=== PATIENT | male | born 1980 | race Caucasian/White ===

== ENCOUNTER 2024-03-20 10:43 | Outpatient (OUT) | payer BC, SELFPAY ==
[2024-03-20 11:36] LABS: Bilirubin Urine NEGATIVE (NEGATIVE); Blood Urine NEGATIVE (NEGATIVE); Clarity Urine CLEAR (CLEAR); Color Urine LT. YELLOW (YELLOW); Glucose Urine UA NEGATIVE (NEGATIVE); Ketones Urine NEGATIVE (NEGATIVE); Leukocyte Esterase Urine TRACE (NEGATIVE); Nitrite Urine POSITIVE (NEGATIVE); Protein Urine NEGATIVE (NEG/TRACE); Urobilinogen Urine 0.2 EU/dL (0.2-1.0)
[2024-03-20 11:42] LABS: Basophils Absolute Auto 0.1 10^3/uL (0.0-0.1); Basophils Percent Auto 0.6 % (0.2-2.0); Eosinophils Absolute Auto 0.2 10^3/uL (0.0-0.7); Eosinophils Percent Auto 2.8 % (0.9-7.0); Hemoglobin 14.7 g/dL (14.0-18.0); Immature Granulocytes Pct Auto 1.2 % (0.0-0.5); Lymphocytes Absolute Auto 2.3 10^3/uL (1.2-3.8); Lymphocytes Percent Auto 27.8 % (20.5-60.0); Mean Corpuscular HGB Conc 33.4 g/dL (29.9-35.2); Mean Corpuscular Hemoglobin 30.2 pg (25.9-34.0); Mean Corpuscular Volume 90.3 fL (80.0-94.0); Mean Platelet Volume 10.7 fL (9.5-13.5); Monocytes Absolute Auto 0.8 10^3/uL (0.3-0.8); Monocytes Percent Auto 9.4 % (1.7-12.0); Neutrophils Absolute Auto 4.7 10^3/uL (1.4-6.5); Neutrophils Percent Auto 58.2 % (43.0-75.0); Platelet Count 231 10^3/uL (150-450); Red Blood Count 4.87 10^6/uL (4.70-6.10); Red Cell Distribution Width 12.7 % (11.0-15.0); White Blood Count 8.1 10^3/uL (4.0-11.0)
[2024-03-20 12:13] LABS: Alanine Aminotransferase 40 U/L (16-63); Albumin Globulin Ratio 1.2; Albumin Level 3.9 g/dL (3.4-5.0); Alkaline Phosphatase 82 U/L (46-116); Anion Gap 13.8; Aspartate Amino Transferase 21 U/L (15-37); Bilirubin Total 0.7 mg/dL (0.2-1.0); Calcium 9.2 mg/dL (8.5-10.1); Carbon Dioxide 27.1 mmol/L (21.0-32.0); Chloride 102 mmol/L (98-107); Chol HDL Ratio 2.5; Cholesterol 197 mg/dL (<=200); Estimated GFR (African America >60 (>=60); Estimated GFR (Non-African Ame >60 (>=60); Globulin 3.3 g/dL; Glucose 97 mg/dL (74-106); HDL Cholesterol 79 mg/dL (40-60); Potassium 3.9 mmol/L (3.5-5.1); Sodium 139 mmol/L (136-145); Total Protein 7.2 g/dL (6.4-8.2); Triglycerides 61 mg/dL (<=150); VLDL CHOLESTEROL 12.2 mg/dL
[2024-03-20 12:31] LABS: Prostate Specific Antigen Scrn 0.35 ng/mL (<=4.00)
== END 2024-03-20 10:44 | disposition home or self-care (01) ==
LOC: LAB 10:47
PROVIDERS: PCP Internal Medicine; Visit Provider Internal Medicine
DX: Z00.00 Encounter for general adult medical examination without abnormal findings (principal)
CPT/HCPCS: 36415; 80053; 80061; 81003; 85025; G0103

== ENCOUNTER 2025-03-28 09:47 | Outpatient (OUT) | payer BC, SELFPAY ==
[2025-03-28 10:28] LABS: Alanine Aminotransferase 49 U/L (16-63); Albumin Globulin Ratio 1.3; Albumin Level 3.9 g/dL (3.4-5.0); Alkaline Phosphatase 75 U/L (46-116); Anion Gap 11.1; Aspartate Amino Transferase 25 U/L (15-37); BUN Creatinine Ratio 10.5; Bilirubin Total 0.5 mg/dL (0.2-1.0); Calcium 8.8 mg/dL (8.5-10.1); Carbon Dioxide 26.1 mmol/L (21.0-32.0); Chloride 103 mmol/L (98-107); Chol HDL Ratio 2.5; Cholesterol 154 mg/dL (<=200); Estimated GFR (African America >60 (>=60 mL/min/1.73m^2); Estimated GFR (Non-African Ame >60 (>=60 mL/min/1.73m^2); Globulin 3.1 g/dL; Glucose 97 mg/dL (74-106); HDL Cholesterol 62 mg/dL (40-60); Potassium 4.2 mmol/L (3.5-5.1); Sodium 136 mmol/L (136-145); Triglycerides 62 mg/dL (<=150); VLDL CHOLESTEROL 12.4 mg/dL
[2025-03-28 10:44] LABS: Basophils Absolute Auto 0.1 10^3/uL (0.0-0.1); Basophils Percent Auto 0.8 % (0.2-2.0); Eosinophils Absolute Auto 0.2 10^3/uL (0.0-0.7); Eosinophils Percent Auto 2.7 % (0.9-7.0); Hematocrit 41.1 % (42.0-54.0); Hemoglobin 14.2 g/dL (14.0-18.0); Immature Granulocytes Abs Auto 0.07 10^3/uL (0.00-0.03); Immature Granulocytes Pct Auto 0.9 % (0.0-0.5); Lymphocytes Absolute Auto 2.2 10^3/uL (1.2-3.8); Lymphocytes Percent Auto 29.4 % (20.5-60.0); Mean Corpuscular HGB Conc 34.5 g/dL (29.9-35.2); Mean Corpuscular Hemoglobin 30.7 pg (25.9-34.0); Mean Platelet Volume 10.3 fL (9.5-13.5); Monocytes Absolute Auto 0.6 10^3/uL (0.3-0.8); Monocytes Percent Auto 8.2 % (1.7-12.0); Neutrophils Absolute Auto 4.3 10^3/uL (1.4-6.5); Platelet Count 278 10^3/uL (150-450); Red Blood Count 4.62 10^6/uL (4.70-6.10); Red Cell Distribution Width 12.2 % (11.0-15.0); White Blood Count 7.5 10^3/uL (4.0-11.0)
[2025-03-28 11:28] LABS: Prostate Specific Antigen Scrn 0.19 ng/mL (<=4.00)
== END 2025-03-28 09:48 | disposition home or self-care (01) ==
LOC: LAB 09:50
PROVIDERS: PCP Internal Medicine; Visit Provider Internal Medicine
DX: Z00.00 Encounter for general adult medical examination without abnormal findings (principal); Z12.5 Encounter for screening for malignant neoplasm of prostate
CPT/HCPCS: 36415; 80053; 80061; 85025; G0103

== ENCOUNTER 2025-10-08 14:14 | Outpatient (OUT) | payer BC, SELFPAY ==
--- OUTSIDE RECORDS SUMMARY | 2025-10-07 07:09 | XMS_ITS | Continuity of Care Document ---
Author Organization [facility] Address [address] [place] [address] Phone Care Team Providers Care Coordinate Measuring Machine Operator Name Role Phone Albert Lopez DO Primary Care Provider [phone] Albert Lopez DO Attending Provider Care Teams Patient Care Team Team Status: Active Member Role/Relationship Status Dates Albert Lopez DO Primary Care Provider Active Patient Care Team Team Status: Inactive Member Role/Relationship Status Dates Albert Lopez DO Primary Care Provider Active Start: October 07, 2025 End: October 07enjastanford Lopez DOAttending ProviderActiveStart: October 07, 2025 End: October 07, 2025 Chief Complaint and Reason for Visit Chief Complaint Admit Date follow up October 07, 2025 11:09am Reason for Visit Admit Date Benign prostatic hyperplasia with lower urinary tract symptoms October 07, 2025 11:09am GERD (gastroesophageal reflux disease) N ovember 2024 11:09am Hypertension October 07, 2025 11:09am Obesity October 07, 2025 11:09am Peripheral neuropathy October 07 11:09am Screening for colon cancer September 11:09am Allergies, Adverse Reactions, Alerts Allergen Type Severity Reaction Last Updated Verified Status lisinopril Allergy Unknown cough October 07, 2025 11:22am Y es Active Social History Smoking Status Status Start Date End Date Date of Observa tion Never smoked tobacco (finding) February 27, 2024 11:56am Observation Status Observation Response Date of Response Legal Sex Male (finding) Sex Assigned At BirthMaleFebruary 1980 Problems Active Problems Problem Diagnosis/Recorded Date Onset Date Status C omments Hydroureteronephrosis September 24, 2024 12:12pm Unknown Active Screening PSA (prostate specific antigen)September 22, 2024 8:20amUnknownActive PSA: 0.35 - 03/2024, 0.19 - 5/2024Peripheral neuropathyNov2024 12:02pmUnknownActiveBenign prostatic hyperplasia with lower urinary tract symptomsMay 2023 9:15amUnknownActiveGERD (gastroesophageal reflux disease) March 20, 2024 9:17amUnknownActiveHypertensionApril 2023 6:23amUnknown ActiveObesityMay 2023 9:17amUnknownActive Medications Medication Status Dose Units Route Directions Qty Days Refills S tart Date Stop Date End Date Reason(s) Instructions Adherence Amlodipine 5 mg tablet Discontinued 0 .ROUTE.BFNLKWC830Wdhrs 2023 3:40pmMay 2023 8:42amTAKE 1 TABLET BY MOUTH EVERY DAY FOR 30 DAYSCephalexin 500 mg ksmobjpViwwjyrfsrly069XONDGkkpg times cllrg26799Xqtzd 2023 11:00pmNovember 2023 11:58amLosartan 25 mg tabletDiscontinued0.ROUTE.VZVFCFC972Oab 2023 1:13pmNovember 2023 1:00pmTAKE 1 TABLET BY MOUTH EVERY DAY FOR 30 DAYSAmlodipine 5 mg tablet Discontinued0.ROUTE.LYYLVTX4557Uypbuyr 2023 9:36amAugust 2024 7:33am TAKE 1 TABLET BY MOUTH EVERY DAY FOR 30 DAYSLosartan 25 mg tabletDiscontinued0 .ROUTE.IGSCNRX160Xxtvikvy 11th, 2024 1:00pmAugust 2024 7:33amTAKE 1 TABLET BY MOUTH EVERY DAY FOR 30 DAYSOmeprazole 40 mg capsule,delayed release(DR/EC) Discontinued0.ROUTE.ABLQDCZ027Bjcubklr 28th, 2024 8:37amMarch 2024 8:49pm TAKE 1 CAPSULE BY MOUTH ON AN EMPTY STOMACH, 30 MINS PRIOR TO BREAKFAST Omeprazole 40 mg capsule,delayed release(DR/EC)Active0.ROUTE.AYZDNBY698Vegxb 2024 8:49pmTAKE 1 CAPSULE BY MOUTH ON AN EMPTY STOMACH, 30 MINUTES PRIOR TO BREAKFASTComplies with drug therapyAmlodipine 5 mg tabletActive0.ROUTE.ZYEJDDJ51 3Ast 2024 7:33amTAKE 1 TABLET BY MOUTH EVERY DAY FOR 30 DAYSComplies with drug therapyLosartan 25 mg tabletActive0.ROUTE.OBNFCYJ160Iavqyy 14th, 2025 7:33amTAKE 1 TABLET BY MOUTH EVERY DAYComplies with drug therapyAmlodipine 5 mg metmvrRwtxismcunwq0KGEEWrwoxXqsfg 2023 11:00pmApril 2023 3:40pm Losartan 25 mg ewqvebZsmxtvvwvuwf67HMFBNmrxbZwwhj 2023 11:00pmMay 2023 1:13pmAmlodipine 5 mg qwtthxTvfrnewacipq0DDSOKdwmcOla 2023 8:42amOctober 2023 9:36amOmeprazole 40 mg capsule,delayed release(DR/EC)Dcqlxtlbqukv57OO TOEqsyh92133Qzqsibsi 5th, 2024 12:00amNovember 2023 8:37amtake on empty stomach, 30 minutes prior to bkfstAzithromycin 250 mg nxvkstSlewhgnzdfts630OFBR .BOWBKJH846Qem 2024 11:00pmNovember 2024 11:22am2 tabs on first day followed by 1 tab on days 2-5 Vital Signs Vital Reading Result Reference Range Collection Date/Time Height 69.25 [in_i] October 07, 2025 11:63fjLgdnve104.96 kgOctober 07, 2025 11:26amHeart Rate 78 /kdz98-487DnryngldOctober 07, 2025 11:26amRespiratory rate12 /jpj99-42YlvakaisOctober 07, 2025 11:26amBP Kquctwpx668 mm[Hg]100-140October 07, 2025 11:26amBP Hrkxrycgt64 mm[Hg]60-100October 07, 2025 11:26amBMI (Body Mass Index)33.3 kg/j9OmrpqkwaOctober 07, 2025 11:26am Advance Directives Advance Directive Response Recorded Date/ Time Advance Directives No December 11, 2023 10:02am Insurance Providers Guarantor Ronan Strickland Address [address] [place] [id number] Info.Home Phone: Payer Group Member ID Coverage Type Subscriber Relationship to Subscriber Effective Date Expiration Date Bharath PRADO Id: [id number] Stout , D Id: [id number] [address] Home Phone: Self Encounters Encounter Location(s) Arrival/Admit Date Discharge/Departure Date Discharge/Departure Disposition Provider(s) Departed Physician/ Provider [facility] October 07, 2025 11:09am October 07, 2025 12:08pm Discharged to home care or self care (routine discharge) Albert Lopez , Recent Diagnosis Onset Date Admit Date Benign prostatic hyperplasia with lower urinary tract symptoms Unknown October 07, 2025 11:09am GERD (gastroesophageal reflux disease) Unknown October 07, 2025 11:09am Hypertension Unknown October 07 11:09am Obesity Unknown October 07 11:09am Peripheral neuropathy Unknown September 202024 11:09am Screening for colon cancer Unknown 2024 11:09am Assessments Diagnosis Onset Date Resolution Status Admit Date Benign prostatic hyperplasia with lower urinary tract symptoms acuteOctober 07, 2025 11:09amGERD (gastroesophageal reflux disease)acute October 07, 2025 11:09amHypertensionacuteOctober 07, 2025 11:09amObesity acuteOctober 07, 2025 11:09amPeripheral neuropathyacuteOctober 07, 2025 11:09amScreening for colon cancernoneactiveOctober 07, 2025 11:09am Plan of Treatment [facility] 12:07pmI have instructed this patient to consume a healthy, low-fat, low-salt diet. I have also encouraged them to continue exercise with weight loss to achieve/maintain a BMI < 30. I have instructed this patient on the correct procedure for obtaining home BP measurements:? - rest for 5 minutes w/o talking. - positioned w/ feet on floor and arms supported. - average best 2/3 readings w/ goal < 135/85. - update office w/ home readings in 2 weeks. Continue Losartan and Amlodipine w/o changes I have instructed this patient to avoid lying flat after eating.?? I have also recommended to avoid eating 2 hours prior to bedtime.?? They were also informed that smaller, frequent meals may be better tolerated. I have discussed additional treatment options for persistent symptoms, which includes: weight loss, H2 blockers and PPI. I have also instructed them to notify the office with any pain or difficulty swallowing. Continue Omeprazole without interruption I have instructed this patient on a low-fat, high-fiber diet.?? I have also instructed them to reduce calories, portions sizes, sweet drinks and snacks.?? I have also recommended they exercise for 30 minutes, 3-5 times weekly. They are aware of the comorbid conditions associated with excessive weight: Diabetes, HTN, Hyperlipidemia, CAD and arthritis. c/o urgency Check UA and PSA yearly Referral to for evaluation and treatment of hydroureteronephrosis This patient is an asymptomatic, low risk patient due for screening. They deny any change in appetite, weight or bowel habits. They deny abdominal pain, heartburn, dysphagia, melena or hematochezia. Cologuard ordered Discussed possible reversible causes: B12, Fe, TSH and BS His examination is significant for decreased vibratory sensation of the toes. He has normal reflexes and motor strength Check labs May require referral for EMG/NCS Future Tests Future scheduled test information is unavailable Pending Tests Pending diagnostic test information is unavailable Future Visits Future appointment information is unavailable Future Procedures Procedure Name Ordered Date Scheduled Date A1C with Estimated Average Glu October 07 12:01pm Vitamin J81Opdszifk 2024 12:01pmFerritinNovvalleywise health [facility] 2024 12:01pmThyroid Stimulating [facility]ormoneSaint [facility] 20[facility] 12:01pm Future Medications Future medication information is unavailable Patient Instructions Patient instructions are unavailable
--- OUTSIDE RECORDS SUMMARY | 2025-10-08 14:20 | XMS_ITS | Clinical Summary ---
Author Organization [employer] [facility] tem Address [id number] [place] [address] Care Team Providers Care Licensing Engineer Name Role Phone Albert Lopez DO Primary Care Provider [phone] Allergies No known active allergies Medications MedicationSigDispense QuantityRefillsLast FilledStart DateEnd DateStatus losartan (COZAAR) 25 mg tablet Take 1 tablet (25 mg total) by mouth in the morning.Active amLODIPine (NORVASC) 5 mg tablet Take 1 tablet (5 mg total) by mouth in the morning.3Active Social History Tobacco UseTypesPacks/DayYears UsedDateSmoking Tobacco: NeverSmokeless Tobacco: Never Tobacco Cessation:Counseling Given: Not Answered Alcohol UseStandard Drinks/VxhgVmvstnxdBda70 (1 standard drink = 0.6 oz pure alcohol)ChildcareAnswerDate NrqfijwtQocikfywtYzellbg08/12/2019EmploymentAnswer Date VlizrztkLudwlivwbrZinwhtm16/12/2019Hunger ScreeningAnswerDate Recorded Within the past 12 months we worried whether our food would run out before we got money to buy more.Never True03/15/2024Within the past 12 months the food we bought just didn't last and we didn't have money to get more.Never True 03/15/2024Sex and Gender InformationValueDate RecordedSex Assigned at BirthNot on fileLegal WbgXjno6006/25/2015 11:31 AM EDTGender IdentityNot on fileSexual OrientationNot on file Last Filed Vital Signs Vital SignReadingTime TakenCommentsBlood Ihqsoqpu816/9052603/15/2024 11:52 AM EDT Rkxeg549003/15/2024 11:52 AM PWKEzimradfzyd54.1 ??C (98.7 ??F)03/15/2024 11:52 AM EDTRespiratory Yqcp807103/15/2024 11:52 AM EDTOxygen Rrzoebtevq407%03/15/2024 11:52 AM EDTInhaled Oxygen Concentration--Qggtyc79.3 kg (219 lb)01/03/2024 9:57 AM OCBKttzhw987.3 cm (5' 9 )01/03/2024 9:57 AM ESTBody Mass Index32.34001/03/2024 9:57 AM EST Plan of Treatment Health MaintenanceDue DateLast DoneCommentsDepression Gzqlfhrgp93/01/1991 DTaP,Tdap and Td Vaccines (1 - Tdap)1997Adult BMI Adeflvyss31/14/2025 01/03/2024Tobacco Vbiwtgryk45Influenza Wojrvfg4707/21/2025 Medical Devices ImplantedTypeAreaManufacturerDevice IdentifierShelf Expiration DateModel / Serial / LotAnchor Sut 2-0 Crv Fiberstitch Fbr Wr Plstr Rpl [id number] - Sna - [id number] Implanted:Qty: 1 on 01/03/20[facility]AnchorRight: SgwbMszfqyw79/31/2027AR-4570 / NA / [id number] Sut 2-0 Crv Fiberstitch Fbr Wr Plstr Rpl [id number] - [id number] Implanted:Qty: 1 on 01/03/2024 by [facility]ius Forrest [facility]: HruyQowaeby61/31/2027AR-457 / / [id number] Insurance Care Teams Team MemberRelationshipSpecialtyStart DateEnd Date Albert Lopez DO PCP - GeneralInternal Medicine03/15/24
--- OUTSIDE RECORDS SUMMARY | 2025-10-08 14:20 | XMS_ITS | Clinical Summary ---
Author Organization [facility] Address [address] [facility] [place] [address] Care Team Providers Care Paster Hat Lining Name Role Phone Albert Lopez DO Primary Care Provider [phone] Allergies Active AllergyReactionsCriticalityNoted XwwyVqkanyovVgaicnsvvoGduny17/27/2024 Medications MedicationSigDispense QuantityRefillsLast FilledStart DateEnd DateStatus amLODIPine (Norvasc) 5 MG tablet TAKE 1 TABLET BY MOUTH EVERY DAY FOR 30 DAYS10/04/2023ctive losartan (Cozaar) 25 MG tablet Active Active Problems ProblemNoted DateDiagnosed DateInternal derangement of right knee11/30/2023 Family History Medical HistoryRelationNameCommentsHeart diseaseFatherCancerMotherMary Griffith Heart diseaseMotherMary StoutRelationNameStatusCommentsFatherMotherMary Griffith Social History Tobacco UseTypesPacks/DayYears UsedDateSmoking Tobacco: NeverSmokeless Tobacco: Never Tobacco Cessation:Counseling Given: Not Answered Alcohol UseStandard Drinks/FbazXrydbgxnNez76 (1 standard drink = 0.6 oz pure alcohol)Sex and Gender InformationValueDate RecordedSex Assigned at BirthMale 11/28/2023 8:42 AM ESTLegal TewXknn0902/01/2023 11:38 PM EDTGender IdentityMale 11/28/2023 8:42 AM ESTSexual OrientationNot on file Last Filed Vital Signs Vital SignReadingTime TakenCommentsBlood Pressure--Pulse--Temperature-- Respiratory Rate--Oxygen Saturation--Inhaled Oxygen Concentration--Jcvjwz80.7 kg (211 lb)05/09/2024 1:42 PM EPNUwduil850.3 cm (5' 9 )05/09/2024 1:42 PM EDTBody Mass Index31.16005/09/2024 1:42 PM EDT Plan of Treatment Not on file Insurance Care Teams Team MemberRelationshipSpecialtyStart DateEnd Date Albert Lopez DO PCP - GeneralInternal Medicine12/05/23
--- OUTSIDE RECORDS SUMMARY | 2025-10-08 14:21 | XMS_ITS | CCD ---
Author Organization [facility] Care Team Providers Care Regional Clinical Director Name Role Phone DR ALBERT LOPEZ Primary Care Unavailable ANALILIA, DR MARTHA Shukla Attending Unavailable ANALILIA, DR MARTHA Shukla Consulting Unavailable ANALILIA, DR MARTHA Shukla Admitting Unavailable ANDREA, ELIZABETH Consulting Unavailable Albert Lopez Unavailable Albert Lopez MD Primary Care Provider MIKA MYLES Attending Unavailable ALBERT LOPEZ Primary Care Unavailable MIKA MYLES Attending Unavailable MIKA MYLES Referring Unavailable ALBERT LOPEZ Primary Care Unavailable DHAVAL FORREST Referring Unavailable LON, DHAVAL Richardson Attending Unavailable LON, DHAVAL Richardson Referring Unavailable LON, DHAVAL Richardson Referring Unavailable LON, DHAVAL Richardson Admitting Unavailable LON, DHAVAL Richardson Attending Unavailable LON, DHAVAL Richardson Referring Unavailable TONYTRAVIS YO Attending Unavailable LON, DHAVAL Richardson Attending Unavailable APLING, BRENDEN Herrera Attending Unavailable APLING, BRENDEN Herrera Attending Unavailable APLING, BRENDEN B Attending Unavailable APLING, BRENDEN B Attending Unavailable APLING, BRENDEN B Attending Unavailable APLING, BRENDEN B Referring Unavailable APLING, BRENDEN B Referring Unavailable LON, DHAVAL Richardson Attending Unavailable LON, DHAVAL Richardson Attending Unavailable Unavailable Primary Care Provider Unavailcaleb e Allergies Allergy ClassificationReported Allergen(s)Allergy TypeDate of OnsetReaction(s) Facility (9 sources)LisinoprilDrug AllergycoughFielding [employer] Other (2 sources)LisinoprilAllergy to cugdfmuny67-88-4334[facility] Medications Current Medications MedicationDrug Class(es)DatesSig (Normalized)Sig (Original)acetaminophen 325 mg / HYDROcodone bitartrate 5 mg oral tablet (1 source)Opioid AgonistStart: 01-02-2024 End: 20-70-5575hccb 1 tablet by mouth every six hours for painHYDROcodone- acetaminophen ([place]) 5-325 MG tablet Indications: Internal derangement of right knee Take 1 tablet by mouth every 6 (six) hours if needed for severe pain for up to 3 days 12 tablet 0 01/02/2024 01/05/2024 ActiveamLODIPine 5 mg oral tablet (20 sources)Dihydropyridine Calcium Channel BlockerStart: 16-99-3167yvxe 1 tablet by mouth once dailyAmlodipine 5 mg tablet Active 0 .ROUTE .COMPLEX August 28, 2024 10:36am TAKE 1 TABLET BY MOUTHEVERY DAY FOR 30 DAYSStart: 02-27-2024 End: 24-09-6053ctzt 1 tablet by mouth once dailyAmlodipine 5 mg tablet Discontinued 0 .ROUTE .COMPLEX February 27, 2024 4:40pm March 20, 2024 9:42am TAKE 1 TABLET BY MOUTH EVERY DAY FOR 30 DAYSStart: 09-07-2023 End: 54-37-9050blay 1 tablet by mouth once dailyAmlodipine 5 mg tablet Discontinued 5 MG PO Daily March 20, 2024 9:42am August 28, 2024 10:36am amLODIPine Besylate Activeazithromycin 250 mg oral tablet (1 source)Macrolide AntimicrobialStart: 79-24-7697Ggeirtsczlpc 250 mg tablet Active 250 MG PO .COMPLEX 6 March 21, 2025 12:00am 2 tabs on first day followed by 1 tab on days 2-5losartan potassium 25 mg oral tablet (16 sources)Angiotensin 2 Receptor BlockerStart: 03-26-2024 End: 45-75-9560jjpd 1 tablet by mouth once dailyLosartan 25 mg tablet Active 0 .ROUTE .COMPLEX September 30, 2024 2:00pm TAKE 1 TABLET BY MOUTHEVERY DAY FOR 30 DAYSStart: 10-18-2023 End: 54-17-2638ydtj 1 tablet by mouth once dailyLosartan 25 mg tablet Discontinued 25 MG PO Daily February 27, 2024 12:00am March 26, 2024 2:13pm meloxicam 7.5 mg oral tablet (8 sources)Nonsteroidal Anti-inflammatory DrugStart: 36-00-1053bkjx 1 tablet by mouth every twenty-four hoursMeloxicam 7.5 MG 1 tablet Orally Once a day for 30 days Jan, Activeomeprazole 40 mg delayed release oral capsule (4 sources)Proton Pump InhibitorStart: 10-17-2024 End: 03-11-2497kyzi 1 capsule by mouth at breakfastOmeprazole 40 mg capsule,delayed release(DR/EC) Active 0 .ROUTE .COMPLEX January 22, 2025 9:49pm TAKE 1 CAPSULE BY MOUTH ON AN EMPTY STOMACH, 30 MINUTES PRIOR TO BREAKFASTStart: 09-24-2024 End: 44-22-6002Bfttvtckyt 40 mg capsule,delayed release(DR/EC) Discontinued 40 MG PO Daily September 24, 2024 1:00am October 17, 2024 9:37am take on empty stomach, 30 minutes prior to bkfsttiZANidine 2 mg oral tablet (5 sources)Central alpha-2 Adrenergic AgonistStart: 97-61-6911gehs 1 tablet by mouth once at bedtime as neededtiZANidine HCl 2 MG 1 tablet as needed Orally q HS for 10 days Aug, Active Completed/Discontinued Medications MedicationDrug Class(es)DatesSig (Normalized)Sig (Original)amoxicillin 875 mg oral tablet (9 sources)Penicillin-class AntibacterialStart: 85-07-6816nvcg 1 tablet by mouth every twelve hoursAmoxicillin 875 MG 1 tablet Orally every 12 hrs for 7 days Apr, Not-Taking/PRNcephalexin 500 mg oral capsule (3 sources)Cephalosporin AntibacterialStart: 03-20-2024 End: 23-19-6666xeog 1 capsule by mouth three times dailyCephalexin 500 mg capsule Discontinued 500 MG PO Three times daily 18 09March 20, 2024 12:00am September 24, 2024 12:58pmCiprofloxacin / Dexamethasone (8 sources)Corticosteroid, Quinolone AntimicrobialStart: 36-61-2857Xwrcwgeb 0.3- 0.1 % 4 drops into affected ear Otic Twice a day for 7 day(s) Apr, Not-Taking/PRNStart: 39-13-5035Hwlcxxxi 0.3-0.1 % 4 drops into affected ear Otic Twice a day for 7 day(s) Apr, Not-TakingStart: 78-26-8293Hgzazcya 0.3- 0.1 % 4 drops into affected ear Otic Twice a day for 7 day(s) Apr, Not-Taking Problems Active Problems Problem ClassificationProblemDateDocumented DateEpisodic/ChronicAcute bronchitis (1 source)Acute bronchitis due to other specified organisms; Translations: [Acute bronchitis]44-56-6097KqrylfaeAkrbnnhoyl disorders (12 sources)Gastro-esophageal reflux disease with esophagitis; Translations: [Gastroesophageal reflux disease with esophagitis without hemorrhage]03-20-2024 ChronicEssential hypertension (20 sources)Essential hypertension; Translations: [Essential (primary) hypertension]Onset: 56-01-6912PfeifggHibnhrglhtl of prostate (5 sources)Benign prostatic hyperplasia; Translations: [Benign prostatic hyperplasia with lower urinary tract symptoms]29-33-9101ZxsykmgCrtzi disorders and dislocations; trauma-related (6 sources)Derangement of unspecified medial meniscus due to old tear or injury, right knee; Translations: [Derangement of right knee]Onset: 46-51-6511Psujcud Nonspecific chest pain (3 sources)Chest pain, unspecified; Translations: [Chest pain]Onset: 03-15-2024 EpisodicOsteoarthritis (2 sources)Arthritis of right knee; Translations: [Unilateral primary osteoarthritis, right knee]38-76-9617DznsfewKpvuq diseases of kidney and ureters (1 source)Hydroureteronephrosis ; Translations: [Unspecified hydronephrosis] 56-76-9964PwmawtusCyxgk nervous system disorders (9 sources)Paresthesia; Translations: [Paresthesia of skin]EpisodicOther nervous system disorders (2 sources)Paresthesia of skinEpisodicOther non-traumatic joint disorders (4 sources)Pain in right knee; Translations: [PAIN IN RIGHT KNEE]Onset: 93-71-8288NvcgtqckKwlhk non-traumatic joint disorders (9 sources)Arthralgia of the lower leg; Translations: [Pain in right knee] EpisodicOther nutritional; endocrine; and metabolic disorders (5 sources)Obesity; Translations: [Obesity, unspecified]75-61-0842NnvrviqUkipy nutritional; endocrine; and metabolic disorders (14 sources)Body mass index 30+ - obesity; Translations: [Obesity, unspecified] ChronicOther nutritional; endocrine; and metabolic disorders (4 sources)Obesity, unspecified; Translations: [Obesity, unspecified]Chronic Other nutritional; endocrine; and metabolic disorders (6 sources)Obesity caused by energy imbalance; Translations: [Other obesity due to excess calories]ChronicOther nutritional; endocrine; and metabolic disorders (2 sources)Other obesity due to excess caloriesChronicOther nutritional; endocrine; and metabolic disorders (1 source)Body mass index (BMI) 30.0-30.9, adultChronicOther nutritional; endocrine; and metabolic disorders (1 source)Body mass index (BMI) 31.0-31.9, adultChronicOther screening for suspected conditions (not mental disorders or infectious disease) (4 sources)Patient encounter status; Translations: [Encounter for screening for malignant neoplasm of prostate]82-52-0152ZakyueleRzfpucp on above:PSA: 0.35 - 03/2024Sprains and strains (4 sources)Strain of unspecified muscle(s) and tendon(s) at lower leg level, left leg, initial encounter; Translations: [Strain of unspecified muscle(s) and tendon(s) at lower leg level, left leg, subsequent encounter]Episodic Past or Other Problems Problem ClassificationProblemDateDocumented DateEpisodic/ChronicEsophageal disorders (5 sources)Esophageal disorders; Translations: [Gastroesophageal reflux disease with esophagitis without hemorrhage] Results Test NameValueInterpretationReference RangeFacilityMR KNEE RIGHT WO IV CONTRAST on 80-35-0779VO KNEE RIGHT WO IV CONTRASTExam: MR KNEE RIGHT WO IV CONTRAST History: Knee pain Technique: Multiplanar multisequence MRI of the knee was performed without contrast. Comparison: MRI of the knee June 24, 2022 and radiographs of the knee May 01, 2024 Findings: Quadriceps and patellar tendons are intact. Small joint effusion. Patella alto. The trochlear groove is shallow. Tibial tuberosity to trochlear groove distance of approximately 19 mm. Anterior and posterior cruciate ligaments are intact. The medial collateral ligament, lateral collateral ligament, and popliteus are intact. Discoid medial meniscus. Small size of the posterior horn of the medial meniscus likely secondary to postsurgical changes of partial meniscectomy. Complex tear of the body through posterior horn of the medial meniscus. 7 mm parameniscal cyst along the posterior margin of the posterior horn/root of the medial meniscus. The lateral meniscus is intact. Mild interval progression of small partial cartilage defects of the medial patellar facet and partial-thickness cartilage fissures of the median patellar ridge. Popliteal fossa structures are intact. No Horne cyst. IMPRESSION: Complex tear of the body through posterior horn of the medial meniscus superimposed on postsurgicalchanges. Findings predisposing to and suggesting patellar instability/maltracking. ELECTRONICALLY SIGNED BY: Ankur Gamboa, DONormalNot AvailableAutomated urine specific gravity by refractometryon 68-93-4322Ljvtdwjo gravity Refractometry automated (U) [Rel density]1.0101.005-1.025[facility] Basophils Auto (Bld) [#/Vol]on 82-68-9129Zffuvkpvr (Bld) [#/Vol]0.1 10 3/uL 0.0-0.1FKettering Health SpringfieldBasophils/100 WBC Auto (Bld)on 76-88-0508Tkmhmapfi/100 WBC (Bld)0.6 %0.2-2.0[facility] Bilirubin Auto test strip (U) [Mass/Vol]on 14-04-8683Jqugghvkq (U) [Mass/Vol] NegativeNEGATIVERegency Hospital Cleveland WestCholesterol in LDL Calc [Mass/Vol]on 96-35-2721Ltoyjejxwmy in LDL [Mass/Vol]106.0 mg/dLRegency Hospital Cleveland WestComment on above:<100 mg/dl SGHCITL043-638 mg/dl NEAR OR ABOVE RNTCOJB303-374 mg/dl BORDERLINE EWYT290-826 mg/dl HIGH>190 mg/dl VERY HIGH Cholesterol in VLDL Calc [Mass/Vol]on 90-84-6375Ebeybgnytqn in VLDL [Mass/Vol] 12.2 mg/dLRegency Hospital Cleveland WestColor Auto (U)on 46-17-7901Sgmxm (U) LT. YELLOWYELLOWRegency Hospital Cleveland WestEosinophils/100 WBC Auto (Bld) on 87-46-2009Mhejspufefc/100 WBC (Bld)2.8 %0.9-7.0[facility] WestErythrocyte distribution width Auto (RBC) [Ratio]on 03-22-3859Sghomuyiqgh distribution width (RBC) [Ratio]12.7 %11.0-15.0[facility] Estimated glomerular filtration rate (GFR) non- Americanon 05-01-2024 GFR/1.73 sq M.predicted among non-blacks MDRD (S/P/Bld) [Vol rate/Area] mL/min/{1.73_m2}>=60[facility] WestGlobulin Calc (S) [Mass/Vol]on 36-98-9278Uvtsayfw (S) [Mass/Vol]3.3 g/dLRegency Hospital Cleveland WestGlucose [Mass/volume] in Urine by Test stripon 32-98-1086Kamdrjd Test strip (U) [Mass/Vol]NegativeNEGATIVERegency Hospital Cleveland WestHematocrit Auto (Bld) [Volume fraction]on 94-44-4893Mcdmuteqcg (Bld) [Volume fraction]44.0 %42.0-54.0[facility] WestHemoglobin [Mass/volume] in Bloodon 68-18-1020Oprwyavjmd (Bld) [Mass/Vol]14.7 g/dL14.0-18.0[facility] WestKetones Auto test strip (U) [Mass/Vol]on 20-68-6115Xdsljpe (U) [Mass/Vol]NegativeNEGATIVERegency Hospital Cleveland WestLaboratory - Chemistry and Chemistry - challengeon 46-32-1566Qyuwztn [Mass/Vol]3.9 g/dL 3.4-5.0[facility] WestALP [Catalytic activity/Vol]82 U/L46-116 [facility] WestALT [Catalytic activity/Vol]40 U/L16-63 [facility] WestAST [Catalytic activity/Vol]21 U/L15-37 [facility] WestBilirubin [Mass/Vol]0.7 mg/dL0.2-1.0[facility] WestCalcium [Mass/Vol]9.2 mg/dL8.5-10.1FKettering Health SpringfieldChloride [Moles/Vol]102 mmol/B93-921EpvtbnwgaRegency Hospital Cleveland WestCholesterol [Mass/Vol]197 mg/dL<=200[facility] Cholesterol in HDL [Mass/Vol]79 mg/pCZxre11-07UjumyjudjRegency Hospital [facility] West Comment on above:> or =60 mg/dl - LOW CARDIOVASCULAR RISK<40 mg/dl - HIGH CARDIOVASCULAR RISKCO2 [Moles/Vol]27.1 mmol/L21.0-32.0[facility] WestCreatinine [Mass/Vol]1.00 mg/dL0.70-1.30[facility] GFR/1.73 sq M.predicted MDRD (S/P/Bld) [Vol rate/Area]mL/min/{1.73_m2}>=60 [facility] WestGlucose [Mass/Vol]97 mg/rX21-690PymlgaegpRegency Hospital Cleveland WestPotassium [Moles/Vol]3.9 mmol/L3.5-5.1FK[facility]tering [facility] SpringfieldProtein [Mass/Vol]7.2 g/dL6.4-8.2FK[facility] Sodium [Moles/Vol]139 mmol/K173-214HbmzogzcwRegency Hospital Cleveland WestTriglyceride [Mass/Vol]61 mg/dL<=150[facility] WestUrea nitrogen [Mass/Vol]14.0 mg/dL7.0-18.0[facility] WestUrea nitrogen/Creatinine [Mass ratio]14.0 mg/mgReg[facility] Hospital [facility] Laboratory - Hematology and Cell countson 14-37-0622Tmvljgka granulocytes/100 WBC (Bld)1.2 %High0.0-0.5FKettering Health SpringfieldLeukocytes [#/volume] corrected for nucleated erythrocytes in Blood by Automated counon 81-71-0477VFK corrected for nucl RBC Auto (Bld) [#/Vol]8.1 10 3/uL4.0-11.0[facility] WestLymphocytes Auto (Bld) [#/Vol]on 95-42-8007Zllitgaivqg (Bld) [#/Vol]2.3 10 3/uL1.2-3.8[facility] WestLymphocytes/100 WBC Auto (Bld)on 89-67-2449Nocwfymluah/100 WBC (Bld)27.8 %20.5-60.0[facility] HospitalH Auto (RBC) [Entitic mass]on 53-28-3787VOQ (RBC) [Entitic mass]30.2 pg25.9-34.0[facility] HospitalHC Auto (RBC) [Mass/Vol]on 41-81-8336PRGI (RBC) [Mass/Vol]33.4 g/dL29.9-35.2FKettering Health SpringfieldMCV Auto (RBC) [Entitic vol]on 03-44-9930LLG (RBC) [Entitic vol] 90.3 fL80.0-94.0[facility] WestMonocytes Auto (Bld) [#/Vol]on 20-88-5283Dczletbdc (Bld) [#/Vol]0.8 10 3/uL0.3-0.8[facility] WestMonocytes/100 WBC Auto (Bld)on 16-95-9173Yvlfnyoyt/100 WBC (Bld)9.4 % 1.7-12.0[facility] WestNeutrophils Auto (Bld) [#/Vol]on 14-53-5730Xqjmnaaizml (Bld) [#/Vol]4.7 10 3/uL1.4-6.5FKettering Health SpringfieldNeutrophils/100 WBC Auto (Bld)on 02-11-1896Igluphxrkjp/100 WBC (Bld)58.2 % 43.0-75.0[facility] WestNo Panel Informationon 03-20-2024 Eosinophils # (Auto)0.2 10 3/uL0.0-0.7FKettering Health SpringfieldImmature Granulocyte # (Auto)0.10 10 3/uLHigh0.00-0.03[facility] Prostate Specific Antigen Screen0.35 ng/mL<=4.00[facility] WestPlatelet mean volume Auto (Bld) [Entitic vol]on 93-08-2143Swfqyaer mean volume (Bld) [Entitic vol]10.7 fL9.5-13.5FKettering Health Springfield Platelets Auto (Bld) [#/Vol]on 56-85-4444Absnwicet (Bld) [#/Vol]231 10 3/uL 150-450[facility] WestProtein Auto test strip (U) [Mass/Vol]on 43-52-5509Psakhrr (U) [Mass/Vol]NegativeNEG/TRACERegency Hospital Cleveland WestRBC Auto (Bld) [#/Vol]on 03-37-7016AKV (Bld) [#/Vol]4.87 10 6/uL4.70-6.10 [address] [facility] Hospitalerum or plasma albumin/globulin mass ratioon 58-00-1288Bdqdpbf/Globulin [Mass ratio]1.2 {ratio}[facility]. Anthony's Hospitalerum or plasma anion gap determinationon 46-80-6137Nnfhy gap [Moles/Vol] 13.8 mmol/LFSelect Medical Specialty Hospital - Cleveland-Fairhillerum or plasma total cholesterol/high density lipoprotein (HDL) cholesterol mass carmen 03-20-2024 Cholesterol.total/Cholesterol in HDL [Mass ratio]2.5 {ratio}[facility] WestComment on above:3.3 - 4.4 LOW RISK4.4 - 7.1 AVERAGE RISK7.1 - 11.0 MODERATE RISK>11.0 HIGH RISKSpecific gravity Auto test strip (U) [Rel density]on 24-94-2108Mhjrasbc gravity (U) [Rel density]CLEARCLEARFKettering Health SpringfieldUrine hemoglobin detection by automated test stripon 96-05-5064Mcnfsfujju Auto test strip Ql (U)NegativeNEGATIVERegency Hospital Cleveland WestUrine nitrite detection by automated test stripon 03-20-2024 Nitrite Auto test strip Ql (U)TRACEAbnormalNEGAvita Health System Bucyrus HospitalNitrite Auto test strip Ql (U)PositiveAbnormalNEGAvita Health System Bucyrus HospitalUrobilinogen Auto test strip (U) [Mass/Vol]on 03-20-2024 Urobilinogen Qn (U)0.2 {Horace'U}/dL0.2-1.0[facility] WestpH Auto test strip (U)on 90-30-5303zX (U)7.0 [pH]5.0-9.0[facility] WestCB AND AUTO DIFFon 00-77-5059KHZQLKON BASOPHIL0.1 X10E9/LNormal0.0-0.2 [facility] CampusComment on above:Performed By: #### CBCA, CMP, 3040-3, 33644-5, 40255-8 #### [facility] ([id number]) [address] [place] [address] 12182OKYKPQIC NEUTROPHIL8.2 X10E9/LHigh1.5-6.6ProDallas Medical CenterComment on above:Performed By: #### CBCA, CMP, 3040-3, 70746-6, 71034-6 #### [facility] ([id number]) [address] [place] [address] 07091Mfvvhgouv/100 WBC (Bld)0.5 %NormalMemorial Health System Comment on above:Performed By: #### CBCA, CMP, 3040-3, 77605-3, 27272-7 #### [facility] ([id number]) [address] [place] [address] 07571Fljcqcyrffz (Bld) [#/Vol]0.0 10*3/uLNormal0.0-0.4ProDallas Medical CenterComment on above:Performed By: #### CBCA, CMP, 3040-3, 32470-6, 05733-5 #### [facility] ([id number]) [address] [place] [address] 45794Swcoxpmkzfm/100 WBC (Bld)0.1 %NormalMemorial Health System Comment on above:Performed By: #### CBCA, CMP, 3040-3, 38294-5, 57965-6 #### [facility] ([id number]) [address] [place] [address] 77918Gxevqmezdfg distribution width (RBC) [Ratio]13.6 %Normal 11.5-15.0ProDallas Medical CenterComment on above:Performed By: #### CBCA, CMP, 3040-3, 38980-9, 34230-6 #### [facility] ([id number]) [address] [place] [address] 53424Ufwiangmga (Bld) [Volume fraction]43.2 %Qovsfd01-48SewEijtizDallas Medical CenterComment on above:Performed By: #### CBCA, CMP, 3040-3, 67699-9, 75669-3 #### [facility] ([id number]) [address] [place] [address] 61756Zszbihnrut (Bld) [Mass/Vol]15.0 g/kNKucmgk06.0-17.0ProDallas Medical CenterComment on above:Performed By: #### CBCA, CMP, 3040-3, 77179-3, 50670-1 #### [facility] ([id number]) [address] [place] [address] 82840Rfmhstigrar (Bld) [#/Vol]2.0 10*3/uLNormal1.0-3.5PMarietta Osteopathic ClinicComment on above:Performed By: #### CBCA, CMP, 3040-3, 03171-9, 05230-8 #### [facility] ([id number]) [address] [place] [address] 67851Yjkwucdncwc/100 WBC (Bld)18.0 %NormalProDallas Medical Center Comment on above:Performed By: #### CBCDebra, CMP, 3040-3, 66831-2, 19813-2 #### [facility] ([id number]) [address] [place] [address] 93446VIS (RBC) [Entitic mass]30.9 mePwosap83-34YiiHmxrxqDallas Medical CenterComment on above:Performed By: #### CBCA, CMP, 3040-3, 10702-9, 62305-7 #### [facility] ([id number]) [address] [place] [address] 86238KDJX (RBC) [Mass/Vol]34.8 g/uJCsfwoc37-64VygNzbficDallas Medical CenterComment on above:Performed By: #### CBCA, CMP, 3040-3, 41612-9, 85217-9 #### [facility] ([id number]) [address] [place] [address] 02948VYY (RBC) [Entitic vol]89 dROhwbfa19-568WegBjtcen [facility]remont HospitalComment on above:Performed By: #### CBCA, CMP, 3040-3, 01241-0, 75488-0 #### [facility] ([id number]) [address] [place] [address] 09240Iglzrmaxz (Bld) [#/Vol]0.9 10*3/uLNormal0-0.9Memorial Health SystemComment on above:Performed By: #### CBCA, CMP, 3040-3, 81469-9, 61099-2 #### [facility] ([id number]) [address] [place] [address] 31911Aogidsamw/100 WBC (Bld)8.3 %NormalMemorial Health System Comment on above:Performed By: #### CBCA, CMP, 3040-3, 70585-7, 49113-5 #### [facility] ([id number]) [address] [place] [address] 19562Gzthspqmcgs/100 WBC (Bld)73.1 %[facility] Comment on above:Performed By: #### CBCA, CMP, 3040-3, 87904-1, 98127-0 #### [facility] ([id number]) [address] [place] [address] 93362Uadiscgh mean volume (Bld) [Entitic vol]8.5 fLNormal7-12 ProMKaiser Permanente Medical Center Santa RosaComment on above:Performed By: #### CBCA, CMP, 3040-3, 54165-3, 23967-6 #### [facility] ([id number]) [address] [place] [address], [place] [address]Racetwklz (Bld) [#/Vol]276 10*3/sEBhcacl754-593WucTdcbml [facility]ont HospitalComment on above:Performed By: #### WILLOW, KOTA, 3040-3, 88919-9, 26882-8 #### [facility] ([id number]) [address] [place] [address] 29742AEN COUNT4.87 X10E12/LNormal4.10-5.70[facility] Comment on above:Performed By: #### KOTA DAUGHERTY, 3040-3, 55831-1, 74000-6 #### [facility] ([id number]) [address] [place] [address] 32141PJN (Bld) [#/Vol]11.2 10*3/uLHigh4.0-11.0ProDallas Medical CenterComment on above:Performed By: #### KOTA DAUGHERTY, 3040-3, 96787-8, 35128-0 #### [facility] ([id number]) [address] [place] [address] 10105CLCOTZMQWDDED METABOLIC PANELon 23-07-8652Jbdmxxj [Mass/Vol]4.8 g/dLNormal3.2-5.3PMarietta Osteopathic ClinicComment on above:Performed By: #### KOTA DAUGHERTY, 3040-3, 09442-0, 00392-6 #### [facility] ([id number]) [address] [place] [address] 83250PCV [Catalytic activity/Vol]72 U/MXilley92-701MxbOixzxdDallas Medical CenterComment on above:Performed By: #### WILLOW, CMP, 3040-3, 60068-3, 78473-2 #### [facility] ([id number]) [address] [place] [address] 88320EFZ [Catalytic activity/Vol]33 U/LNormal0-40ProDallas Medical CenterComment on above:Performed By: #### KOTA DAUGHERTY, 3040-3, 29029-9, 68746-3 #### [facility] ([id number]) [address] [place] [address] 25099Owrga gap [Moles/Vol]10 mmol/LNormal5-15ProDallas Medical CenterComment on above:Performed By: #### WILLOW, KOTA, 3040-3, 83506-4, 48997-1 #### [facility] ([id number]) [address] [place] [address] 15179WUW [Catalytic activity/Vol]22 U/LNormal0-41ProDallas Medical CenterComment on above:Performed By: #### KOTA DAUGHERTY, 3040-3, 57926-1, 55138-1 #### [facility] ([id number]) [address] [place] [address] 16129Pkexffrpb [Mass/Vol]0.5 mg/dLNormal0.3-1.2ProMedOlympia Medical CenterComment on above:Performed By: #### KOTA DAUGHERTY, 3040-3, 76438-6, 37481-0 #### [facility] ([id number]) [address] [place] [address] 35184Toxyzav [Mass/Vol]9.4 mg/dLNormal8.5-10.5PMarietta Osteopathic ClinicComment on above:Performed By: #### KOTA DAUGHERTY, 3040-3, 33277-6, 09481-8 #### [facility] ([id number]) [address] [place] [address] 29893Pxrmeokt [Moles/Vol]100 mmol/SNnllwq61-731UnkWpmzdgDallas Medical CenterComment on above:Performed By: #### KOTA DAUGHERTY, 3040-3, 98978-2, 09268-6 #### [facility] ([id number]) [address] [place] [address] 01212KG4 [Moles/Vol]27 mmol/GXhnpap95-49VlhRauvryMarietta Osteopathic Clinic Comment on above:Performed By: #### KOTA DAUGHERTY, 3040-3, 90062-3, 01532-3 #### [facility] ([id number]) [address] [place] [address] 25581Sivcirktmr [Mass/Vol]1.01 mg/dLNormal0.70-1.20[facility]orial Health SystemComment on above:Result Comment: METHOD TRACEABLE TO IDMS STANDARD Performed By: #### KOTA DAUGHERTY, 3040-3, 26395-1, 76973-0 #### [facility] ([id number]) [address] [place] [address] 42452wBLM (CKD-EPI) NON-RACE DEPENDENT>90Normal>59ProDallas Medical CenterComment on above:Result Comment: Reported eGFR is based on the CKD-EPI 2020 equation that does not use a race coefficient.Performed By: #### KOTA DAUGHERTY, 3040-3, 37579-1, 35580- 5 #### [facility] ([id number]) [address] [place] [address] 24201Xsmirlc [Mass/Vol]126 mg/zJFqlu76-28SoeWafqtfMemorial Health System Comment on above:Performed By: #### KOTA DAUGHERTY, 3040-3, 82093-8, 37081-4 #### [facility] ([id number]) [address] [place] [address] 82193Cgnpufopw [Moles/Vol]3.9 mmol/LNormal3.5-5.0Memorial Health SystemComment on above:Performed By: #### KOTA DAUGHERTY, 3040-3, 98883-6, 01547-1 #### [facility] ([id number]) [address], [place] [address]Daxoewj [Mass/Vol]7.7 g/dLNormal6.0-8.0ProDallas Medical CenterComment on above:Performed By: #### WILLOW, KOTA, 3040-3, 19623-7, 68790-5 #### [facility] ([id number]) [address] [place] [address] 89812Bxlvmf [Moles/Vol]137 mmol/GZzrsgm909-223WpiUkogwg [facility]remont HospitalComment on above:Performed By: #### KOTA DAUGHERTY, 3040-3, 14645-5, 09330-5 #### [facility] ([id number]) [address] [place] [address] 49870Zinv nitrogen [Mass/Vol]19 mg/dLNormal5-23ProDallas Medical CenterComment on above:Performed By: #### KOTA DAUGHERTY, 3040-3, 27185-1, 93536-0 #### [facility] ([id number]) [address] [place] [address] 31386ZA CTA ABD AND PELVISon 98-71-5603QX CTA ABD AND PELVISCT CTA ABD AND PELVIS Left-sided chest pain extending to the back. Assess for aortic aneurysm or dissection Comparison None Procedure: Multidetector CT Angiogram performed with IV contrast through the abdomen and pelvis including 3 -DMaximum intensity projection reconstructions constructed under concurrent physician supervision on a independent workstation . 3 D images obtained to improve visualization of vascular detail. Automated exposure control was utilized Findings: The lack of oral contrast limits evaluation of abdominal parenchymal organs, adenopathy, and bowel. 3D reformatted images confirm the source data findings. Abdominal aorta and bilateral common iliac arteries show appropriate caliber without aneurysm dissection stenosis or occlusion Origins of the trunk SMA and renal arteries are patent Mild disc bulging at the L5-S1 level. Consider MRI if you would like to assess for occult stenosis within the lumbar spine. There is fatty infiltration liver. Gallbladder is contracted and not well characterized Spleen pancreas adrenal glands unremarkable Moderate bilateral hydroureteronephrosis to the level bladder. I cannot appreciate an obstructing process. Urology consultation recommended. Consider nonemergent contrast CT urogram to assess for anyoccult obstructing process at the ureterovesical junction bilaterally Appendix and terminal ileum appropriate and there is no evidence for small bowel obstruction IMPRESSION: Abdominal aorta and bilateral common iliac arteries show no acute findings Mild disc bulging at the L5-S1 level. Consider MRI if you would like to assess for occult stenosis within the lumbar spine. Moderate bilateral hydroureteronephrosis to the level bladder. I cannot appreciate an obstructing process. Urology consultation recommended. Consider nonemergent contrast CT urogram to assess for anyoccult obstructing process at the ureterovesical junction bilaterally All CT scans at this facility use dose modulation, iterative reconstruction, and/or weight based dosing when appropriate to reduce radiation dose to as low as reasonably achievable. Finalized by Tommy Henderson MD on 03/15/2024 2:17 PMNGlenbeigh HospitalCT CTA CHESTon 96-08-1967LK CTA CHESTCT CTA CHEST History: Acute aortic syndrome (AAS) suspected Procedure: Multidetector CT thoracic Angiogram performed with IV contrast without complication, including 3 -DMaximum intensity projection reconstructions constructed under concurrent physician supervision on a independent workstation to optimize vascular assessment. Automated exposure control was utilized. Findings: 3D reformatted images confirm the source data findings. Thoracic aorta shows appropriate caliber. No dissection aneurysm stenosis or occlusion Origins of great vessels off the aortic arch are patent. Mediastinum and delilah show no acute findings. lungs demonstrate no acute findings Impression: * Thoracic aorta shows no acute findings. * No acute pulmonary abnormality. All CT scans at this facility use dose modulation, iterative reconstruction, and/or weight based dosing when appropriate to reduce radiation dose to as low as reasonably achievable. Finalized by Tommy Henderson MD on 03/15/2024 2:23 PMNGlenbeigh HospitalFibrin D-dimer DDU (PPP) [Mass/Vol]on 03-15-2024 DIMER<150Normal<255 Memorial Health SystemComment on above:Result Comment: Results <255 ng/mL DDU: The presence of a VTE can safely be excluded with a negative D-Dimer result and Wells score. A negative result doesn't exclude the possibility of DIC. The test be repeated along with other diagnostic tests if the patient's symptoms persist or worsen. [email or web address] By: #### KOTA DAUGHERTY, 3040-3, 58123-4, 62330-4 #### [facility] ([id number]) [address] [place] [address] 77767ITFJSEjw 23-29-1458Hgnski [Catalytic activity/Vol]35 U/LNormal 17-40Memorial Health SystemComment on above:Performed By: #### KOTA DAUGHERTY, 3040-3, 53413-5, 38200-4 #### [facility] ([id number]) [address] [place] [address] 24644Stepezcd I.cardiac High sensitivity method [Mass/Vol]on HOUR TROP I, HIGH SENSITIVITY4 ng/LNormal<21Memorial Health SystemComment on above:Performed By: #### 84463-2 #### [facility] ([id number]) [address] [place] [address] 31354NGJRNGZQ I, HIGH SENSITIVITY<2Normal<21ProDallas Medical CenterComment on above:Performed By: #### KOTA DAUGHERTY, 3040-3, 26638-9, 83267-9 #### [facility] ([id number]) [address] [place] [address] 30976GDP 12 leadon 45-55-1671BXUBTCKCQHNTFPYczRhxnkk Health System BASIC METABOLIC PANLon 06-85-0559Fsgkt gap [Moles/Vol]10 mmol/LNormal5-15 [facility] Health SystemComment on above:Performed By: #### BMP #### [facility] ([id number]) [address], [address] [place], [place] [address]Zpnzybc [Mass/Vol]9.6 mg/dLNormal8.5-10.5PMarietta Osteopathic ClinicComment on above:Performed By: #### BMP #### [facility] ([id number]) [address], [address] [place], [place] [address]Lwsbouih [Moles/Vol]104 mmol/KSccqhz41-596VxbAttseiDallas Medical CenterComment on above:Performed By: #### BMP #### [facility] ([id number]) [address], [address] [place], [place] [address]AU0 [Moles/Vol]26 mmol/BWrjccs88-10LvpIrlmhbMarietta Osteopathic Clinic Comment on above:Performed By: #### BMP #### [facility] ([id number]) [address], [address] [place], [place] [address]Mcvxkiocxs [Mass/Vol]1.01 mg/dLNormal0.60-1.30ProDallas Medical CenterComment on above:Result Comment: METHOD TRACEABLE TO IDMS STANDARD Performed By: #### BMP #### [facility] ([id number]) [address], [address] [place], [place] [address]oVPN (CKD-EPI) NON-RACE DEPENDENT>90Normal>59ProDallas Medical CenterComment on above:Result Comment: Reported eGFR is based on the CKD-EPI 2020 equation that does not use a race coefficient.Performed By: #### BMP #### [facility] ([id number]) [address], [address] [place], [place] [address]Fwcobob [Mass/Vol]84 mg/oWAsydtq60-76FdtCqvqtcMemorial Health System Comment on above:Performed By: #### BMP #### [facility] ([id number]) [address], [address] [place], [place] [address]Kxmierldy [Moles/Vol]4.0 mmol/LNormal3.5-5.0ProDallas Medical CenterComment on above:Performed By: #### BMP #### [facility] ([id number]) [address], [address] [place], [place] [address]Ezzghx [Moles/Vol]140 mmol/FZppmxu840-369TzqOrxcgbMemorial Health SystemComment on above:Performed By: #### BMP #### [facility] ([id number]) [address], [address] [place], [place] [address]Wgtq nitrogen [Mass/Vol]16 mg/dLNormal5-23Mem[facility] Health SystemComment on above:Performed By: #### BMP #### [facility] ([id number]) [address], [address] [place], [place] [address]Gpwuw Metabolic Panelon 73-89-5057Ygvwd gap [Moles/Vol]10 mmol/L 5 - 15 mmol/[facility] Campusica Health SystemCalcium [Mass/Vol]9.6 mg/dL8.5 - 10.5 mg/dL [facility] SystemChloride [Moles/Vol]104 mmol/L98 - 109 mmol/LProMedica Health SystemCO2 [Moles/Vol]26 mmol/L22 - 32 mmol/LProMedica Health System Creatinine [Mass/Vol]1.01 mg/dL0.60 - 1.30 mg/dLSelect Medical Cleveland Clinic Rehabilitation Hospital, AvonComment on above:METHOD TRACEABLE TO IDGA STANDARDeGFR (CKD-EPI)non-race dependent- PINF [facility], AvonComment on above: Reported eGFR is based on the CKD-EPI 2020 equation that does not use a race coefficient. Glucose [Mass/Vol]84 mg/dL65 - 99 mg/dLParkview Health Montpelier Hospital SystemPotassium [Moles/Vol]4.0 mmol/L3.5 - 5.0 mmol/LProMedica Health SystemSodium [Moles/Vol] 140 mmol/L134 - 146 mmol/LProMedica Health SystemUrea nitrogen [Mass/Vol]16 mg/dL5 - 23 mg/dLGeisinger-Lewistown HospitalMRI Knee w/o Righton 99-46-1142ZVC Knee w/o RightHistory: Internal derangement. Medial knee pain since injury. Technique: Multiplanar multisequence MRI of the knee was performed without contrast. Comparison: None available Findings: Quadriceps and patellar tendons are intact. Small joint effusion. Patella rinku. The trochlear groove is shallow. Tibial tuberosity to trochlear groove distance of approximately 18 mm. Mild edema within superolateral Hoffa's fat pad. Anterior and posterior cruciate ligaments are intact. The medial collateral ligament, lateral collateral ligament, and popliteus myotendinous unit are intact. Discoid medial meniscus. Horizontal tear of the body through posterior horn of the medial meniscus with formation of a round 7 mm parameniscal cyst located along the posterior aspect of the posterior root. The lateral meniscus is intact. Partial-thickness cartilage fissures of the median patellar ridge. Otherwise no well-defined or measurable cartilage defect. Popliteal fossa structures are intact. No Horne cyst. IMPRESSION: Horizontal tear of the body through posterior horn of the medial meniscus. Findings predisposing to and suggesting patellar instability/maltracking. Report reported and signed by Ankur Gamboa on 06/24/2022 1634NoTrinity Health System East CampusXR Orbits for MRIon 11-36-9580MJ Orbits for MRIHISTORY: Pre-MRI clearance, history of metal exposure. FINDINGS: No metallic foreign body is identified. Visualized osseous structures are unremarkable. IMPRESSION: No metallic foreign body. Report reported and signed by Reilly Londono on 06/24/2022 1428NoTrinity Health System East CampusXR KNEE RT 4V or >on 63-45-5117RV KNEE RT 4V or >EXAM: XR KNEE RT 4V or > HISTORY: Pain of right knee joint Knee Series Clinical Indication: Pain of right knee joint Comparison: None FINDINGS: The 3views of the knee show normal alignment without fractures or dislocations. The medial and lateral tibiofemoral compartments and patellofemoral compartment are unremarkable. There is no knee region soft tissue swelling. Hoffa's fat pad region is unremarkable. There are no joint bodies. There is no joint effusion. There are no radiopaque foreign bodies. If there is further concern, recommend follow-up radiographs or MRI for complete assessment. IMPRESSION: No fractures or dislocation of the knee. Unremarkable right knee SL: [id number] Electronically authenticated by: ELIZABETH ANDREA Date: 2022-05-20 15:[address] [place] [address] Vital Signs Date TimeVital SignValuePerforming EhyoefexxFslobyqv50-24-5101 13:37-0400Body aoiomy452.9 cmReg[facility]05-02-2025 13:37-0400Body mass index (BMI) [Ratio]32.3 kg/n8KwmixrsytRegency Hospital [facility]05-02-2025 13:37-0400Body .84 kgRegency Hospital [facility]05-02-2025 13:37-0400Diastolic blood vzwextkl41 mm[Hg][facility] 03-21-2025 13:37-0400Heart tlue230 /[facility] 03-21-2025 13:37-0400Respiratory rate12 /[facility] 03-21-2025 13:37-0400Systolic blood mm[Hg][facility]11-05-2024 11:31-0500Body qbuqfe043.9 cmReg[facility] 09-24-2024 11:31-0500Body mass index (BMI) [Ratio]31.4 kg/d1PtimvzwmdRegency Hospital [facility]11-05-2024 11:31-0500Body snriqw88.06 kgRegency Hospital [facility]11-05-2024 11:31-0500Diastolic blood slyoleng91 mm[Hg][facility]11-05-2024 11:31-0500Heart rate67 /[facility]11-05-2024 11:31-0500Respiratory rate12 /[facility]11-05-2024 11:31-0500Systolic blood ogempilp973 mm[Hg][facility]06-27-2024 13:00-0400Body fescaa977.9 cmReg[facility] Hospital [facility]06-27-2024 13:00-0400Body mass index (BMI) [Ratio]31.8 kg/t7SkmutabgkRegency Hospital [facility] West06-27-2024 13:00-0400Body liabmr12.42 kgRegency Hospital [facility]06-27-2024 13:00-0400Diastolic blood uspzcbjr13 mm[Hg] [facility]06-27-2024 13:00-0400Heart rate72 /[facility]06-27-2024 13:00-0400Respiratory rate12 /[facility]06-27-2024 13:00-0400Systolic blood aiwwhjyb686 mm[Hg] [facility]05-01-2024 09:40-0400Body avfxfr886.9 cm [facility]05-01-2024 09:40-0400Body mass index (BMI) [Ratio]31.6 kg/v4LclooapybRegency Hospital [facility]05-01-2024 09:40-0400Body camrsq14.97 kgRegency Hospital [facility]05-01-2024 09:40-0400Diastolic blood mm[Hg][facility]05-01-2024 09:40-0400 Heart rate86 /[facility]05-01-2024 09:40-7594NwU5% (BldA) [Mass fraction]98 %[facility]05-01-2024 09:40-0400 Systolic blood etpbethp478 mm[Hg][facility]01-22-2024 09:30-0500Body .9 cmBenjamin Ball Other [employer] Other 01-22-2024 09:30-0500Body mass index (BMI) [Ratio] 31.14 kg/f4Bovvkscn Ball Other [employer] Other 01-22-2024 09:30-0500Body eklfwe69.34 kgBenjamin Ball Other [employer] Other 01-22-2024 09:30-0500Diastolic blood epmplygr47 mm[Hg] Albert Ball Other [employer] Other 01-22-2024 09:30-0500Respiratory rate12 /minBenjamin Ball Other [employer] Other 01-22-2024 09:30-0500Systolic blood yggbpynj439 mm[Hg] Albert Ball Other [employer] Other 01-16-2024 11:25-0500Body .[address] [employer] Vslmre37-01-9665 11:25-0500Body mass index (BMI) [Ratio]30.86 kg/m2Pmh 1 [facility] [place]01-16-2024 11:25-0500Body wagjcy34.[address] [place] [address] [employer] Mjldvf00-45-8427 10:38-0500Body .9 cmBenjamin Ball Other [employer] Other 12-19-2023 10:38-0500Diastolic blood ykuidpkg70 mm[Hg] Albert Ball Other [employer] Other 12-19-2023 10:38-0500Systolic blood mm[Hg] Albert Ball Other [employer] Other 10-19-2023 08:30-0400Body eibplj881.9 cmBenjamin Ball Other [employer] Other 10-19-2023 08:30-0400Body mass index (BMI) [Ratio] 30.96 kg/u4Tgsabkuh Ball Other [employer] Other 10-19-2023 08:30-0400Body .8 kgBenjamin Ball Other [employer] Other 10-19-2023 08:30-0400Diastolic blood hlativba848 mm[Hg]Albert Ball Other [employer] Other 10-19-2023 08:30-0400Respiratory rate12 /minBenjamin Ball Other [employer] Other 10-19-2023 08:30-0400Systolic blood nxgyarar752 mm[Hg] Albert Ball Other [employer] Other 04-19-2023 10:00-0400Body uxcvhy878.9 cmBenjamin Ball Other [employer] Other 04-19-2023 10:00-0400Body mass index (BMI) [Ratio] 31.49 kg/r9Mkqtrqzl Ball Other [employer] Other 04-19-2023 10:00-0400Body wchquy81.43 kgBenjamin Ball Other [employer] Other 04-19-2023 10:00-0400Diastolic blood nkipkrks63 mm[Hg] Albert Ball Other [employer] Other 04-19-2023 10:00-0400Respiratory rate12 /minBenjamin Ball Other [employer] Other 04-19-2023 10:00-0400Systolic blood mm[Hg] Albert Ball Other [employer] Other 03-15-2023 10:30-0400Body ksxovz318.9 cmBenjamin Ball Other [employer] Other 03-15-2023 10:30-0400Body mass index (BMI) [Ratio]31.4 kg/z2Nugplvvh Ball Other [employer] Other 03-15-2023 10:30-0400Body .16 kgBenjames Lopez Other [employer] Other 03-15-2023 10:30-0400Diastolic blood rozvpxsz94 mm[Hg] Albert Lopez Other [employer] Other 03-15-2023 10:30-0400Respiratory rate12 /minBenjamin Ball Other [employer] Other 03-15-2023 10:30-0400Systolic blood lgklyzbd966 mm[Hg] Albert Lopez Other [employer] Other Encounters Encounter DateEncounter TypeCare ProviderFacilityStart: 03-21-2025 End: 09-91-0234rlhisquumlZftfslgeqMansfield Hospital Work Phone: Start: 03-21-2025 End: 41-56-5432Yaycisvcb for general adult medical examination without abnormal findingsSt. Anthony's Hospitaltart: 03-21-2025 End: 22-16-9091Zbxcahw encounter procedureC[facility] Work Phone: Start: 09-24-2024 End: 53-93-3967nnlrbsbejlHiilayzmhMansfield Hospital Work Phone: Start: 09-24-2024 End: 19-24-9053Ufcrqvs encounter procedureC[facility] Work Phone: Start: 07-11-2024 End: 35-79-4450Yijyhm Luis Forrest DO Work Phone: [facility]THOPAEDICSStart: 07-11-2024 End: 86-67-5080Tyvinf Luis Forrest DO Work Phone: [facility]THOPAEDICSStart: 07-11-2024 End: 50-96-9086Djkmwv outpatient visit 10 minutesJaroyce Richardson Lon DO Work Phone: [facility] FB ORTHOPAEDICSComment on above:S/P medial meniscus repair of right knee (Primary Dx); Arthritis of right kneeStart: 07-11-2024 End: 17-60-4076swephlbfugDKGQB A HUDDLESTONNot AvailableStart: 05-16-2024 End: 28-35-7181veqycwabuoSuerhtycbMansfield Hospital Work Phone: Start: 05-16-2024 End: 20-59-8716Ylbeycj encounter procedureC[facility] Work Phone: Start: 05-09-2024 End: 29-74-9434fupcfosaalBQYUQ A HUDDLESTONNot AvailableStart: 05-07-2024 End: 05-17-9535xmvfgrgnfmLVUWR B APLINGNot AvailableStart: 05-01-2024 End: 61-80-7931tafhhwphsuYHJHJ B APLINGNot AvailableStart: 04-24-2024 End: 56-42-5539wlgnppqiqhAGTUE B APLINGNot AvailableStart: 03-20-2024 End: 15-10-1555Yeeeqrqny for general adult medical examination without abnormal findingsSt. Anthony's Hospitaltart: 03-20-2024 End: 84-43-7796Livcaop encounter procedureC[facility] Phys[facility] GroupSelect [facility] Work Phone: Start: 03-15-2024 End: 46-19-5826Qjgtrvtrx department patient visitSTESelect Medical Specialty Hospital [facility], Inctart: 03-15-2024 End: 53-86-0434Fdoufeaiy department patient visitSTEVEN [facility] Centertart: 03-11-2024 End: 11-80-0908eqkfrlcxfcXWWPT B APLINGNot AvailableStart: 17-37-4585Sah-patient / Non-visitFirriverside doctors' [facility] [employer] Work Phone: Start: 02-07-2024 End: 68-53-1148kjyiocvawlQGZER B APLINGNot AvailableStart: 01-10-2024 End: 00-47-7929poyqjtxtdeLRAGZ B APLINGNot AvailableStart: 01-03-2024 End: 97-99-3638Vwjbgaxqnc and management of inpatientDAVID Pao SISSYSANAZFostoria City Hospital HospitalStart: 01-03-2024 End: 01-65-1658Bpxyhuuzlx and management of inpatientJAROYCE FORRESTFostoria City Hospital HospitalStart: 06-34-5852LndpgaZyvxq T Olsen EMERGENCY PHYSICIAN Work Phone: noms ORTHOPAEDICSComment on above:Internal derangement of right knee (Primary Dx)Start: 12-11-2023 End: 43-47-4479slnhhjnwjiJnmcxvzc Ball Other [employer]ep Other Start: 31-35-6357Yzpfmnogk for other preprocedural examinationBechejames Lopez Medical ClinicStart: 12-89-5446Gwjmre outpatient visit 25 minutesBenjames Lopez Medical ClinicStart: 12-05-2023 End: 73-87-5060vyzycchqrrTKQBB A HUDEast [facility] Center HospitalStart: 48-41-5990Xmrxnxrir for other preprocedural examinationSOhioHealth Nelsonville Health Centertart: 12-05-2023 End: 53-44-7255Fnzbrmb encounter procedurePm Pre-Admission Testing [address] [place] [address] - Pre AdmitComment on above:Preop examination (Primary Dx); Hypertension, unspecified typeStart: 12-05-2023 End: 90-05-7757Dujwbjugohjiv examination donePm[address] SystemStart: 12-05-2023 End: 98-32-2689yhqgnfnhkqXYCQQ Debra Bran AvailableStart: 11-07-2023 End: 90-98-2486aztufcidnzDpacgouf Ball Other noezeep Other Start: 97-38-3992Dythxslec encounterBenjamin BallJANNETTEG [facility] Medical ClinicStart: 10-18-2023 End: 78-30-5160pkaamniaggZujqjadb Ball Other [employer]ep Other Start: 14-52-3885Qzmnqqbof encounterBenjamin BallFPG [facility] ClinicStart: 09-08-2023 End: 82-91-7835iijqozosvtJkyfjgqu Ball Other noezeep Other Start: 46-93-9290Wsdjipdah encounterBenjamin BallJANNETTEG [facility] Medical ClinicStart: 09-07-2023 End: 80-65-8079ibfgsniskhYnecweca Ball Other noezeep Other Start: 61-11-8554Qxapuq outpatient visit 15 minutes Albert PetersenG [facility] ClinicStart: 03-08-2023 End: 61-63-0777igclrxyblfLwzdyows Ball Other noezeep Other Start: 67-19-0415Qrscgkadp for general adult medical examination without abnormal findingsEjnjames PetersenG [facility] ClinicStart: 62-79-5984Xhpvgvpk preventive med est patient 40-64yrsBenjamin BallJANNETTEG [facility] Medical ClinicStart: 02-01-2023 End: 82-49-4752zuumqtycqjUndecjtm Ball Other noezeep Other Start: 12-54-0176Vydpew outpatient visit 15 minutes Albert PetersenG [facility] ClinicStart: 05-20-2022 End: 55-69-8047rgdpmmagyfVA ALBERT BALLFacility:H1 Procedures DateProcedureProcedure DetailPerforming ClinicianHistory of operative procedure on kneeS/P medial meniscus repair of right kneeJames Debra Lon DO Work Phone: Plan of Treatment DateCare ActivityDetailAuthorStart: 97-45-7620Lueyd BMI ScreeningAdult BMI ScreeningProBlanchard Valley Health Systemca [facility] SystemStart: 14-67-8660Qdafptd ScreeningTobacco ScreeningProCleveland Clinic [facility] SystemStart: 07-11-2024 End: 35-46-2934Cxxnfar encounter /22/2024 9:00 AM EDT Office Visit [facility] [address] [place] [address] Dhaval Forrest, [address] [place] [address] ArrivedNOMS FB ORTHOPAEDICSComment on above:ArrivedStart: 01-10-2024 End: 01-81-5516Iihaonx encounter wrymflaex16/21/2024 8:30 AM EST Office Visit [facility] [address] [place] [address] Brenden Chan NP [address] [place] [address] [facility] ORTHOPAEDICSStart: 01-03-2024 End: 24-29-0326Eubasrlbq to same day surgery ztjwqn0401/03/2024 11:45 AM EST - 01/03/2024 12:45 PM EST Surgery [facility] [address] [place] [address] Dhaval Forrest DO [address] [place] [address] ARTHROSCOPIC MENISCECTOMY KNEE [99880 (CPT )][facility] - SurgeryComment on above:ARTHROSCOPIC MENISCECTOMY KNEE [28001 (CPT )]Start: 01-03-2024 End: 29-98-8641Kywsxs kne surg w/meniscectomy med/lat w/shvgARTHROSCOPIC MENISCECTOMY KNEE right knee meniscal tear 01/03/2024 11:45 AM ESTFREMONT SURGERYStart: 28-67-4838Hkvfpdabdq hospital visit by himymubuo13/14/2024 11:45 AM EST Hospital Encounter [facility] [address] [place] [address] Lon, Dhaval Richardson, DO [address] [place] [address] [facility] SurgeryStart: 01-03-2024 End: 89-28-3628Uwdasbz encounter angymyjru23/14/2024 10:30 AM EST Procedure Visit [facility] Dhaval Forrest, DO [address] [place] [address] [facility] EXT DEPStart: 07-21-2023 Influenza vaccinationInfluenza VaccineParkview Health Montpelier Hospital SystemStart: 1997 DTaP,Tdap and Td Vaccines (1 - Tdap)DTaP,Tdap and Td Vaccines (1 - Tdap) [facility] Centertart: 91-05-1804Hfqin BMI Follow Up PlanAdult BMI Follow Up PlanParkview Health Montpelier Hospital SystemStart: 63-75-9599Xedjaknpny ScreeningDepression ScreeningSelect Medical [facility] Hospital, AvonComprehensive metabolic 1999 panel - Serum or [facility] OhioComprehensive metabolic 1999 panel - Serum or [facility] Payers DatePayer CategoryPayerPolicy [id number] [id number] [facility] [id number] .1.04210[id number] .1.091812.3.57[id number] .1.085691.3.57[id number] 2.16.840.1.697765.3.57[id number] 2.16.840.1.721910.3.57[id number] 2.16.840.1.833726.3.579.2.023[id number] 2.16.840.1.363307.3.57[id number] 2.16840.1.886700.3.57[id number] 2.840.1.884283.3.579.[id number] 2.840.1.952723.3.57[id number] 2.16840.1.190243.3.57[id number] 2.16840.1.191191.3.579.2.[id number] 2.16840.1.409800.3.57[id number] 2.840.1.975431.3.57[id number] 2.16.840.1.882376.3.579.2.514522-63-1256Fmfkdgn2442095 2.16840.1.504276.3.579.2.156822-56-7262Hdobrbe6057325 2.16.840.1.392236.3.579.2.923937-10-7976Dlscdeu3242827 2.16840.1.591254.3.57[id number] 2.16.840.1.261457.3.57[id number] 2.16.840.1.363236.3.57[id number] 2.16.840.1.564526.3.579.2.97[id number] Social History DateTypeDetailFacilityStart: 05-01-2019 End: 88-98-5644Ksk Assigned At [facility] [employer] Other Start: 11-30-2023 End: 98-02-5308Ehlitla smoking status NHISNever smoked tobaccoParkview Health Montpelier Hospital SystemStart: 11-30-2023 End: 21-30-8033Mojgods use and exposureSmokeless tobacco non-userParkview Health Montpelier Hospital SystemStart: 12-05-2023 End: 78-36-6931Zaplxma intakeCurrent drinker of alcohol (finding)[facility] SystemStart: 05-01-2019 End: 31-01-6626Xsrmymh intakeParkview Health Montpelier Hospital SystemStart: 98-49-5553Gqx Assigned At [facility] HealthcareStart: 73-02-9246Wnqdre identityIdentifies as male gender (finding)[facility] HealthcareHousinCommunity Hospital [facility] SystemStart: 76-30-3035Rgj Assigned At [facility] HospitalNot on fileParkview Health Montpelier Hospital SystemStart: 92-22-6126NnhBchm (finding)[facility] Clinical Notes 02-01-2023 to 07-11-2024 Note Date & [id number] History of Present illness Narrative* Dhaval Forrest, - 07/11/2024 9:00 AM EDT Images from the original note were not included. HISTORY OF PRESENT ILLNESS: Kurtis Sagastume is an 43 y.o. @ male. 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 He is walking well, reports pain is nearly gone. Swelling has resolved. Some stiffness after prolonged sitting. Denies locking or catching. Denies instability. 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 Prior treatment: MDP 03/11/24, MRI [facility] 05/07/24 Lower Extremity Issue The symptoms are aggravated by movement. MEDICATION: Current Outpatient Medications on File Prior to Visit Medication Sig Dispense Refill amLODIPine (Norvasc) 5 MG tablet TAKE 1 TABLET BY MOUTH EVERY DAY FOR 30 DAYS losartan (Cozaar) 25 MG tablet No current facility-administered medications on file prior to visit. MEDICAL HISTORY: Past Medical History: Diagnosis Date Hypertension ([facility]) Tear of meniscus of knee Jun 2022 ALLERGIES: Allergies Allergen Reactions Lisinopril Cough VITALS: Visit Vitals Smoking Status Never PHYSICAL EXAM: Ortho Exam Full range of motion of the right knee. There are no areas of tenderness. There is mild patellofemoral crepitus. Negative apprehension. Negative impingement. Gait is normal. IMAGING: MRI of the right knee dated May 07 2024 from the [facility]. There is a tear of the medial meniscus. There is also slight irregularity on the undersurface of the lateral meniscus whichmay represent a tear. There is loss of articular cartilage and irregularity throughout the joint but most pronounced at the patellofemoral joint. The cruciate and collateral ligaments are intact. Ther e is a Horne cyst ASSESSMENT: ICD-10-CM 1. S/P medial meniscus repair of right knee Z98.890 2. Arthritis of right knee M17.11 PLAN: Discussed future treatment options and indication for future intervention. At this point the patient is almost completely asymptomatic and there is no need for intervention he will follow up with me as needed I explained the diagnosis and reviewed treatment options. I answered all of the patient's questions. Idalia Forrest D.O. documented in this encounterMer[facility], formerly [facility] [id number] Telephone encounter Note* Telephone Encounter - Jonn T Thomas, EMERGENCY PHYSICIAN - 01/02/2024 3:41 PM EST Post op pain rx. PDMP reviewed. [facility] [id number] Miscellaneous Notes* Telephone Encounter - Jonn Thomas NP - 01/02/2024 3:41 PM EST Post op pain rx. PDMP reviewed. documented in this encounterMercy Hospital [facility], formerly [facility] [id number] Evaluation note* Encounter Date Diagnosis Assessment Notes Treatment Notes Treatment Clinical Notes Nov, Primary hypertension (ICD-10 - I 10) Stable w/ treatement. Instructed to continue medication w/o interruption. Nov,reop exam for internal medicine (ICD-10 - Z01.818)Patient seen and examine for his preoperative evaluated. Nov,Other obesity due to excess calories (ICD-10 - E66.09)This patient has been instructed on a low-fat, high-fiber diet. They are instructed to reduce calories, portion sizes and snacks. Nov,Old peripheral tear of medial meniscus of right knee (ICD-10 - M23.203)Scheduled for arthroscopy of right knee Nov,ody mass index [BMI] 31.0-31.9, adult (ICD-10 - Z68.31) [employer] Other 01-16-2024 Instructions* Patient Instructions* Haley Melo RN - 12/05/2023 11:15 AM EST Preoperative Education Checklist- General Surgery date: 01/03/24 Surgery time: 12p Arrival time: 10a 1. Bring a photo ID and your insurance card with you the day of surgery. You will check in at the main lobby of the [facility]- registration desk is straight ahead as soon as you walk in. Tell them you are here for surgery. 2. If you have a Living Will/Durable Power of [place]am [place] for Health Care that is not on file here, please bring a copy the day of surgery. 3. Please shower/bathe the night before surgery with the provided soap or wipes. Do not shower the morning of surgery- you will do use wipes when you arrive here at the hospital before getting into your surgical gown. Do not shave the area of your procedure for 2 days prior to your surgery. 4. NO powder, lotion, perfume/cologne, aftershave, make-up, deodorant, or hair products after you have bathed. 5. NO nail haitian/acrylic on at least one finger. If you are having a hand, wrist or foot surgery then all nail haitian and artificial/acrylic nails must be removed from that hand or foot. 6. Avoid ALL Aspirin and non-steroidal anti-inflammatory drugs and certain vitamins (Ibuprofen, Advil, Aleve, Excedrin, Meloxicam, Celebrex, fish/krill oil, etc.) for 7 days prior to surgery as instructed by your surgeon and/or your prescribing doctor. Tylenol IS ALLOWED. If you are on Ticlid, Xarelto, Eliquis, Pradaxa, Plavix or Coumadin, please check with your prescribing doctor for instructions for when to stop them. 7. If you use an inhaler, continue to use it routinely. 8. Nothing to eat or drink (not even water, gum, mints, or hard candy!) AFTER midnight prior to your surgery. 9. Take only medications that you are instructed to on the morning of surgery with a TINY SIP OF WATER. 10. Choose a responsible adult that will be able to drive you home when you are discharged from your hospital stay for your surgery and can stay with you in your home for 24 hours after your procedure. You must NOT drive any vehicle or operate any machinery for 24 hours after surgery. 11. When you dress for your appointment, please wear loose fitting clothing that is appropriate to accommodate your surgical area procedure. BRING WITH YOU ANY DEVICES YOU MAY NEED: LORENA hose, ice machine, sling/swath, brace or special shoe, oversized zip-up or button up shirt, CPAP machine if staying overnight. 12. Do NOT wear jewelry, watches, or any piercings or metal for surgery- leave these valuables and money at home. 13. Do NOT wear contact lenses for surgery- glasses are okay if needed. 14. The anesthesiologist will talk with you the day of surgery and will ask you to sign a Consent Form. 15. Refrain from smoking or any type of tobacco use for at least 8 hours and marijuana for 24 hoursprior to arrival for your surgery. 16. If a GREEN BLOOD band is given to you, please bring it with you for the day of surgery. 17. Notify your surgeon if you develop any illness before your surgery. 18. If you are staying overnight, please DO NOT BRING your home medications with you. 19. If you have any questions prior to surgery, please call the [facility] office at [phone], Mon.-Fri. 7 a.m.-3 p.m. Leave a voicemail if needed. Pre-Surgery Instructions: Medication Instructions amLODIPine (NORVASC) 5 mg tablet Take morning of procedure losartan (COZAAR) 25 mg tablet Take morning of procedure How to Avoid an Infection after Your Surgery Your doctor will give you specific instructions, but remember: -ALWAYS wash hands before caring for your incision. -No picking, scratching, or rubbing your incision. -No creams, lotion, powder, rubbing alcohol or hydrogen peroxide on the incision (can harm the tissue and slow healing). -Your doctor will give you specific instructions for what type of dressing you will need and how often it will need changed for infection purposes. -No tight clothing on incision. -Do not allow anyone to touch your incision unless they are cleaning, checking, or redressing it (be sure they wash their hands first). -No contact of your incision with pets; avoid sleeping with pets. -Take full course of antibiotic if prescribed for you after surgery- do not stop unless directed kina your physician. You may also be given an antibiotic prior to your surgery to help prevent surgical site infections. -Eat a healthy and varied diet including proteins, fruits, and vegetables to help promote wound healing and keep blood sugars under control if you are diabetic. -Smoking slows the healing process by decreasing the amount of oxygen in your blood that is needed for tissue healing. Try to avoid or stop smoking if possible. LOOK at your incision each morning and each night to check the progress of healing. Some soreness, numbness, itching and/or mild bruising around the incision is normal. Call your doctor if you noticeany of the following: -Increased redness or hardening around the incision area. -Increased pain at the incision site. -Incision feels hot to the touch. -Swelling or pulling apart of the incision edges. -Yellow or green drainage or foul odor coming from the incision. -Bleeding from the incision (apply pressure as needed). -Fever higher than 101 degrees Fahrenheit for more than 4 hours. SHOWERING: Your doctor will give you specific instructions, but remember: -Be careful getting into and out of the shower. -Showers should be quick (5 minutes or less). -Use a clean washcloth to gently wash your incision with soap and water and pat the area dry with aclean towel. -No re-using wash cloths or towels; get a fresh one to clean your incision. -Do not soak in the bathtub, go swimming or use a hot tub (Jacuzzi), or perform activities where your incision is submerged in water or exposed to any fluids or substances until instructed by your doctor. -If your have the sticky strips (steri-strips) over the incision, it is OK to shower with them. Do not remove them. Let them fall off on their own. If you have a question, call your doctor s office. Go to the follow-up appointment with your doctor. documented in this encounterAccess Hospital DaytonAnago [facility] [id number] Evaluation note* Encounter Date Diagnosis Assessment Notes Treatment Notes Treatment Clinical Notes Sep, Primary hypertension (ICD-10 - I 10) [employer] Other [id number] Evaluation note* Encounter Date Diagnosis Assessment Notes Treatment Notes Treatment Clinical Notes Aug, Primary hypertension (ICD-10 - I 10) This patient is instructed to consume a healthy, low-fat, low-salt diet. They are also encouraged to continue exercise to achieve/maintain a normal BMI. Start Amlodipine Recheck at home and here in office next week. Aug,Strain of lumbar region, initial encounter (ICD-10 - S39.012A)ROM exercises, ice/heat and Tylenol. Avoid NSAIDs due to HTN Lidocaine patch, gentle manipulation Aug,astroesophageal reflux disease with esophagitis without hemorrhage (ICD-10 - K21.00)Diet instructions: Smaller portions, avoid eating and laying flat, avoid eating or drinking prior to bedtime. Weight loss. Aug,Other obesity due to excess calories (ICD-10 - E66.09)This patient has been instructed on a low-fat, high-fiber diet. They are instructed to reduce calories, portion sizes and snacks. It is recommended that they exercise for 30 minutes, 3-5 times weekly. Aug,ody mass index [BMI] 30.0-30.9, adult (ICD-10 - Z68.30) [employer] Other 04-19-2023 Evaluation note* Encounter Date Diagnosis Assessment Notes Treatment Notes Treatment Clinical Notes Feb, Wellness examination (ICD-10 - Z 00.00) Healthy diet and exercise. Reviewed age-appropriate preventive testing recommended. Feb,rimary hypertension (ICD-10 - I10)This patient is instructed to consume a healthy, low-fat, low-salt diet. They are also encouraged to continue exercise to achieve/maintain a normal BMI. Feb,astroesophageal reflux disease with esophagitis without hemorrhage (ICD-10 - K21.00)Diet instructions: Smaller portions, avoid eating and laying flat, avoid eating or drinking prior to bedtime. Weight loss. Feb,Strain of left knee, subsequent encounter (ICD-10 - S86.912D)Ice, heat and Voltaren Gel. Quad exercises Avoid squatting, kneeling Feb,Obesity (BMI 30-39.9) (ICD-10 - E66.9)This patient has been instructed on a low-fat, high-fiber diet. They are instructed to reduce calori es, portion sizes and snacks. It is recommended that they exercise for 30 minutes, 3-5 times weekly. [employer] Other 03-15-2023 Evaluation note* Encounter Date Diagnosis Assessment Notes Treatment Notes Treatment Clinical Notes Jan, Strain of left knee, initial enc ounter (ICD-10 - S86.912A) Ice, Voltaren Gel. Avoid squatting or kneeling Should gradually improve Jan,aresthesias (ICD-10 - R20.2)Reassure, healthy diet and weight loss. Check BS, B12 and TSH at wellness Jan,Essential hypertension (ICD-10 - I10)This patient is instructed to consume a healthy, low-fat, low-salt diet. They are also encouraged to continue exercise to achieve/maintain a normal BMI. [employer] Other Evaluation noteNo InformationNortEinstein Medical Center-Philadelphia CORD:USE [employer] Other Evaluation note* Diagnosis Internal derangement of right knee- Primary documented in this encounter [facility] HealthcareEvaluation note* Diagnosis Onset Date Resolution Status GERD (gastroesophageal reflux disease) acuteHypertensionacuteObesityacute [facility] Work Phone: Evaluation note* Diagnosis S/P medial meniscus repair of right knee- Primary Arthritis of right knee documented in this encounter [facility] HealthcareEvaluation note* Diagnosis Onset Date Resolution Status Benign prostatic hyperplasia with lower urinary tract symptoms acuteGERD (gastroesophageal reflux disease)acuteHypertensionacuteObesityacute Screening for colon cancernoneactiveWellness examinationnonctive [facility] Work Phone: Evaluation note* Diagnosis Preop examination- Primary Unspecified pre-operative examination Hypertension, unspecified type Preop examination Unspecified pre-operative examination Hypertension, unspecified type [facility] encounter [facility]* Diagnosis Onset Date Resolution Status Admit Date Benign prostatic hyperplasia with lower urinary tract symptoms acuteMay 2024 1:25pmGERD (gastroesophageal reflux disease)acuteMay 2024 1:25pmHypertensionacuteMay 2024 1:25pmObesityacuteMay 2024 1:25pm Screening for colon cancernoneactiveMay 2024 1:25pmWellness examination noneactiveMay 2024 1:25pmAcute bronchitis due to other specified organisms noneactiveMay 2024 1:25pm [facility] Work Phone: History general Narrative - Reported* Type Description Date Medical History HTN Medical HistoryPain in right kneeMedical HistoryGastroesophageal reflux disease with esophagitis without hemorrhageMedical HistoryObesity, unspecifiedMedical HistoryEssential hypertensionSurgical Historybladder as a newbornSurgical Historykidney stonesHospitalization Historysee above [employer] Other Summary Purpose Family History No Family History Records FoundNo Family History Records FoundNo Family History Records FoundNo Family History Records Found Advance Directives Advance Directive Response Recorded Date/ Time Advance Directives No December 11, 2023 10:02am Advance Directive Response Recorded Date/ Time Advance Directives No December 11, 2023 11:02am Chief Complaint and Reason for Visit Chief Complaint 6 month f/u Reason for Visit GERD (gastroesophage al reflux disease) Hypertension Obesity Chief Complaint Amb Documentation Wellness possible left ear infectionReason for VisitBenign prostatic hyperplasia with lower urinary tract symptoms GERD (gastroesophageal reflux disease) Hypertension Obesity Screening for colon cancer Wellness examination Chief Complaint Admit Date Wellness/URI March 21, 2025 1:25pm Reason for Visit Admit Date Benign prostatic hyperplasia with lower urinary tract symptoms March 21, 2025 1:25pm GERD (gastroesophageal reflux disease) M ay 2024 1:25pm Hypertension March 21, 2025 1:25pm Obesity March 21, 2025 1:25pm Screening for colon cancer March 21, 2025 1:25pm Wellness examination March 21, 2025 1:25p m Acute bronchitis due to other specified organisms March 21, 2025 1:25pm Reason for Referral SpecialtyDiagnoses / ProceduresReferred By ContactReferred To Contact Diagnoses Preop examination Hypertension, unspecified type Procedures ECG 12 lead Dhaval Forrest, [address] [place] [address] Referral IDStatusReasonStart DateExpiration DateVisits RequestedVisits [id number] Additional Source Comments (unrecognized sect ion and content) No Status Records FoundNo Status Records FoundNo Status Records FoundNo Status Records Found INFORMATION SOURCE (unrecogn ized section and content) DATE CREATED AUTHOR 05/28/2022 [facility] DATE CREATED AUTHOR AUTHOR'S ORGANIZ ATION 06/25/2022 [facility] [employer] DATE CREATED AUTHOR AUTHOR'S ORGANIZ ATION 03/17/2024 [facility] DATE CREATED AUTHOR AUTHOR'S ORGANIZ ATION 07/13/2024 [facility] EPIC REASON FOR VISIT (unrecogniz ed section and content) ReasonCommentsFollow-up Care Teams (unrecognized sec tion and content) Team Status: Active Member Role Status Dates Albert Lopez DO Primary Care Provider Active Team Status: Inactive Member Role Status Dates Albert Lopez DO Primary Care Provide r, Attending Provider Active Start: March 21, 2025 End: March 21, 2025 Team Status: Active Member Role Status Dates Albert Lopez DO Primary Care Provider Active Team Status: Active Member Role Status Dates Albert Lopez DO Primary Care Provider Active Start: February 27, 2024 Eyad Jara ProviderActiveStart: February 27, 2024 Team Status: Inactive Member Role Status Dates Albert Lopez DO Primary Care Provide r, Attending Provider Active Start: March 20, 2024 End: March 20, 2024 Team Status: Inactive Member Role Status Dates Albert Lopez DO Primary Care Provider Active Start: May 16, 2024 End: May 16, 2024Justa Smith APRN EMERGENCY PHYSICIAN-Nelly ProviderActive Start: May 16, 2024 End: May 16, 2024Team MemberRelationshipSpecialtyStart DateEnd Date Albert Lopez MD [address] [place] [id number] PCP - GeneralInternal Medicine12/05/23 Team Status: Inactive Member Role Status Dates Albert Lopez DO Primary Care Provide r, Attending Provider Active Start: September 24, 2024 End: September 24, 2024Team MemberRelationshipSpecialtyStart DateEnd Date Albert Lopez MD [address] [place] [address] [facility] - [facility]12/05/23 Team Status: Inactive Member Role Status Dates Albert Lopez DO Primary Care Provide r, Attending Provider Active Start: March 21, 2025 End: March 21, 2025 Goals (unrecognized section and content) Goals may be documented in a n alternate section FOR RECORDS PERTAINING TO PATIENTS WHO ARE OR HAVE BEEN ENROLLED IN A CHEMICAL DEPENDENCY/SUBSTANCEABUSE PROGRAM, SOME INFORMATION MAY BE OMITTED. This clinical summary was aggregated from multiple sources. Caution should be exercised in using it in the provision of clinical care. This summary normalizes information from multiple sources, and as a consequence, information in this document may materially change the coding, format and clinical context of patient data. In addition, data may be omitted in some cases. CLINICAL DECISIONS SHOULD BE BASED ON THE PRIMARY CLINICAL RECORDS. [employer] [facility]. provides no warranty or guarantee of the accuracy or completeness of information in this document.
[2025-10-08 15:13] LABS: Thyroid Stimulating Hormone 3.759 uIU/mL (0.358-3.740)
[2025-10-08 16:07] LABS: Ferritin 162.0 ng/mL (26.0-388.0)
[2025-10-10 08:09] LABS: Vitamin B12 315 pg/mL (232-1245)
== END 2025-10-08 14:15 | disposition home or self-care (01) ==
LOC: LAB 14:15
PROVIDERS: PCP Internal Medicine; Visit Provider Internal Medicine
DX: G62.9 Polyneuropathy, unspecified (principal); R53.83 Other fatigue
CPT/HCPCS: 36415; 82607; 82728; 83036; 84443